=== PATIENT | male | born 1980 | race Caucasian/White ===

== ENCOUNTER 2018-07-20 13:35 | Inpatient (IN) | payer MEDICAID ==
[~2018-07-20] VITALS: Ht 182.9 cm; Wt 85.7 kg
[~2018-07-20 13:35] MED LIST: AMPH15CA PO; AMPH30TA3 PO; GABA-529 PO; LORA0.5T2 PO
[2018-07-20] MEDS ORDERED: LORazepam 2 MG/ML VIAL IM ONE (14:00)
[2018-07-20] MEDS ORDERED: DiphenhydrAMINE HCL 50 MG/ML VIAL IM ONE (14:00)
[2018-07-20] MEDS ORDERED: HALOPERIDOL LACTATE 5 MG/ML VIAL IM ONE (14:00)
[2018-07-20] MEDS ORDERED: ACETAMINOPHEN 325 MG TABLET PO PRN ×2 (14:30→18:30)
[2018-07-20] MEDS ORDERED: HALOPERIDOL 5 MG TABLET PO PRN (14:30)
[2018-07-20] MEDS ORDERED: ZOLPIDEM TARTRATE 10 MG TABLET PO PRN (14:30)
[2018-07-20] MEDS ORDERED: IBUPROFEN 400 MG TABLET PO PRN ×2 (14:30→18:30)
[2018-07-20 14:56] LABS: BASOPHILS % (AUTO) 0.5 % (0.0-2.0); EOSINOPHILS % (AUTO) 3.9 % (1.0-6.0); HEMATOCRIT 39.3 % (41-53); HEMOGLOBIN 13.5 g/dL (13.5-17.5); LYMPHOCYTES # (AUTO) 3.1 K/uL (1.0-4.8); LYMPHOCYTES % (AUTO) 37.7 % (22.0-44.0); MEAN CORPUSCULAR HEMOGLOBIN 30.5 pg (26.0-34.0); MEAN CORPUSCULAR HGB CONC 34.2 G/dL (31.0-37.0); MEAN CORPUSCULAR VOLUME 89 fL (80-100); MONOCYTES # (AUTO) 0.7 K/uL (0.1-1.0); NEUTROPHILS # (AUTO) 4.1 K/uL (1.8-7.7); NEUTROPHILS % (AUTO) 49.9 % (40.0-70.0); PLATELET COUNT (AUTO) 390 K/uL (150-450); RED CELL DISTRIBUTION WIDTH 13.6 % (11.5-14.5)
[2018-07-20 15:17] LABS: ALANINE AMINOTRANSFERASE 23 U/L (12-78); ALKALINE PHOSPHATASE 70 U/L (46-116); ANION GAP 10 mmol/L (8-16); ASPARTATE AMINOTRANSFERASE 21 U/L (15-37); BILIRUBIN,TOTAL 0.5 mg/dL (0.1-1.0); CALCIUM, TOTAL 9.3 mg/dL (8.8-10.5); CARBON DIOXIDE 26 mmol/L (22-29); CHLORIDE 101 mmol/L (98-107); CREATININE 1.02 mg/dL (0.60-1.30); GLOMERULAR FILTR. RATE CALC > 60 mL/min (>60); GLUCOSE,RANDOM 83 mg/dL (70-110); POTASSIUM 3.4 mmol/L (3.5-5.1); SODIUM SERUM 137 mmol/L (136-145); TOTAL PROTEIN, SERUM 7.6 g/dL (6.4-8.2)
[2018-07-20 15:24] LABS: UREA NITROGEN, BLOOD 16 mg/dL (7-18)
[2018-07-20 18:09] VITALS: BP 120/64
[2018-07-20] MEDS ORDERED: DOCUSATE SODIUM 100 MG CAPSULE PO PRN (18:30)
[2018-07-20] MEDS ORDERED: LOPERAMIDE HCL 2 MG CAPSULE PO PRN (18:30)
[2018-07-20] MEDS ORDERED: CloNIDine HCL 0.1 MG TABLET PO PRN (18:30)
[2018-07-20] MEDS ORDERED: MAG HYDROX/AL HYDROX/SIMETH ES 30 ML SUSPENSION UDCUP PO PRN (18:30)
[2018-07-20] MEDS ORDERED: ONDANSETRON HCL 4 MG TABLET PO PRN (18:30)
[2018-07-20] MEDS ORDERED: GuaiFENesin/D-METHORPHAN [SUGAR-FREE] 200-20MG/10 ML SYRUP UDCUP PO PRN (18:30)
[2018-07-20] MEDS ORDERED: PETROLATUM,WHITE 71 GM JELLY TP PRN (18:30)
[2018-07-20] MEDS ORDERED: NICOTINE 14 MG/24 HOUR PATCH TD PRN (18:30)
[2018-07-20] MEDS ORDERED: ALBUTEROL SULFATE HFA 90 MCG/PUFF 8 GM INHALER IH PRN (18:30)
[2018-07-20] MEDS ORDERED: MAGNESIUM HYDROXIDE SUSPENSION 30 ML UDCUP PO PRN (18:30)
[2018-07-21 07:22] VITALS: BP 119/65
[2018-07-21 08:26] VITALS: BP 107/67
[2018-07-21 08:28] LABS: BASOPHILS % (AUTO) 0.3 % (0.0-2.0); EOSINOPHILS % (AUTO) 3.5 % (1.0-6.0); HEMATOCRIT 41.8 % (41-53); HEMOGLOBIN 14.3 g/dL (13.5-17.5); LYMPHOCYTES % (AUTO) 25.9 % (22.0-44.0); MEAN CORPUSCULAR HEMOGLOBIN 30.9 pg (26.0-34.0); MEAN CORPUSCULAR HGB CONC 34.3 G/dL (31.0-37.0); MEAN CORPUSCULAR VOLUME 90 fL (80-100); MONOCYTES # (AUTO) 0.7 K/uL (0.1-1.0); MONOCYTES % (AUTO) 8.6 % (2.0-9.0); NEUTROPHILS # (AUTO) 4.9 K/uL (1.8-7.7); NEUTROPHILS % (AUTO) 61.7 % (40.0-70.0); PLATELET COUNT (AUTO) 388 K/uL (150-450); RED BLOOD CELL COUNT(AUTO) 4.64 MIL/uL (4.50-5.90); RED CELL DISTRIBUTION WIDTH 13.8 % (11.5-14.5)
[2018-07-21 09:00] LABS: HEMOGLOBIN A1C 5.6 % (4.5-6.2)
[2018-07-21 09:37] LABS: ALANINE AMINOTRANSFERASE 25 U/L (12-78); ALBUMIN 3.7 g/dL (3.4-5.0); ALKALINE PHOSPHATASE 65 U/L (46-116); ANION GAP 9 mmol/L (8-16); ASPARTATE AMINOTRANSFERASE 27 U/L (15-37); BILIRUBIN,TOTAL 0.7 mg/dL (0.1-1.0); CALCIUM, TOTAL 9.3 mg/dL (8.8-10.5); CARBON DIOXIDE 27 mmol/L (22-29); CHLORIDE 102 mmol/L (98-107); CHOL/HDL RATIO 2.3 (4.2-7.3); CHOLESTEROL 136 mg/dL (131-200); CREATININE 1.08 mg/dL (0.60-1.30); GLOMERULAR FILTR. RATE CALC > 60 mL/min (>60); GLUCOSE,RANDOM 70 mg/dL (70-110); HDL CHOLESTEROL 58 mg/dL (40-60); LDL CHOL (CALC.) 73 mg/dL (0-130); POTASSIUM 3.9 mmol/L (3.5-5.1); SODIUM SERUM 138 mmol/L (136-145); THYROID STIMULATING HORMONE 2.46 uIU/mL (0.36-3.74); TOTAL PROTEIN, SERUM 7.3 g/dL (6.4-8.2); TRIGLYCERIDES 27 mg/dL (15-150); UREA NITROGEN, BLOOD 12 mg/dL (7-18)
[2018-07-21] MEDS: OLANZapine 5 MG RAPDIS TABLET PO SCH ×2 (10:37→16:51)
[2018-07-21 16:12] VITALS: BP 135/89
[2018-07-22 03:38] VITALS: BP 125/80
[2018-07-22] MEDS: OLANZapine 5 MG RAPDIS TABLET PO SCH ×2 (08:33→16:29)
[2018-07-22 08:39] VITALS: BP 120/68
[2018-07-22 16:00] VITALS: BP 108/65
[2018-07-22] MEDS: LORazepam 2 MG TABLET PO PRN (16:29)
[2018-07-23 00:26] VITALS: BP 113/67
[2018-07-23 08:21] VITALS: BP 135/78
[2018-07-23] MEDS: OLANZapine 5 MG RAPDIS TABLET PO SCH ×2 (09:00→16:23)
[2018-07-23 16:01] VITALS: BP 104/55
[2018-07-23] MEDS: LORazepam 2 MG TABLET PO PRN (16:24)
[2018-07-24 05:39] VITALS: BP 118/72
[2018-07-24 08:31] VITALS: BP 108/69
[2018-07-24] MEDS: OLANZapine 5 MG RAPDIS TABLET PO SCH (09:11)
[2018-07-24] MEDS ORDERED: OLAN5TAB2 PO (13:23)
== END 2018-07-24 13:52 | disposition home or self-care (01) | DRG 750 ==
LOC: EMS 13:36 → B3A 15:26
PROVIDERS: ADMIT Psychiatry & Neurology Child & Adolescent Psychiatry; ATTEND Psychiatry & Neurology Child & Adolescent Psychiatry
DX: F20.0 Paranoid schizophrenia (principal); E87.6 Hypokalemia; F17.210 Nicotine dependence, cigarettes, uncomplicated; F90.9 Attention-deficit hyperactivity disorder, unspecified type; F43.10 Post-traumatic stress disorder, unspecified; F41.9 Anxiety disorder, unspecified; Z71.6 Tobacco abuse counseling
CPT/HCPCS: 83036; 84443; G0480; J1200; J1630; J2060

== ENCOUNTER 2019-05-11 11:44 | Inpatient (IN) | payer MEDICAID, OTHER ==
[~2019-05-11] VITALS: Ht 188 cm; Wt 81.8 kg
[~2019-05-11 11:44] MED LIST changes: -AMPH15CA PO; -AMPH30TA3 PO; -GABA-529 PO; -LORA0.5T2 PO; +OLAN5TAB2 PO
[2019-05-11 14:33] LABS: BASOPHILS % (AUTO) 0.3 % (0.0-2.0); EOSINOPHILS % (AUTO) 2.3 % (1.0-6.0); HEMATOCRIT 40.2 % (41-53); HEMOGLOBIN 13.9 g/dL (13.5-17.5); LYMPHOCYTES # (AUTO) 2.2 K/uL (1.0-4.8); LYMPHOCYTES % (AUTO) 22.4 % (22.0-44.0); MEAN CORPUSCULAR HGB CONC 34.6 G/dL (31.0-37.0); MEAN CORPUSCULAR VOLUME 90 fL (80-100); MONOCYTES # (AUTO) 0.7 K/uL (0.1-1.0); MONOCYTES % (AUTO) 6.6 % (2.0-9.0); NEUTROPHILS # (AUTO) 6.8 K/uL (1.8-7.7); NEUTROPHILS % (AUTO) 68.4 % (40.0-70.0); PLATELET COUNT (AUTO) 466 K/uL (150-450); RED BLOOD CELL COUNT(AUTO) 4.48 MIL/uL (4.50-5.90)
[2019-05-11 14:43] LABS: ANION GAP 5 mmol/L (8-16); CALCIUM, TOTAL 9.3 mg/dL (8.8-10.5); CARBON DIOXIDE 31 mmol/L (22-29); CHLORIDE 101 mmol/L (98-107); CREATININE 0.94 mg/dL (0.60-1.30); GLOMERULAR FILTR. RATE CALC > 60 mL/min (>60); GLUCOSE,RANDOM 84 mg/dL (70-110); POTASSIUM 4.2 mmol/L (3.5-5.1); SODIUM SERUM 137 mmol/L (136-145); UREA NITROGEN, BLOOD 8 mg/dL (7-18)
[2019-05-11 15:01] LABS: ALANINE AMINOTRANSFERASE 19 U/L (12-78); ALBUMIN 3.8 g/dL (3.4-5.0); ALKALINE PHOSPHATASE 90 U/L (46-116); ASPARTATE AMINOTRANSFERASE 18 U/L (15-37); BILIRUBIN,TOTAL 0.6 mg/dL (0.1-1.0); TOTAL PROTEIN, SERUM 7.5 g/dL (6.4-8.2)
[2019-05-11] MEDS ORDERED: SULFAMETHOX/TRIMETH DS 800-160 MG/TABLET PO ONE (15:30)
[2019-05-11] MEDS ORDERED: ZOLPIDEM TARTRATE 10 MG TABLET PO PRN (19:30)
[2019-05-11] MEDS ORDERED: HALOPERIDOL 5 MG TABLET PO PRN (19:30)
[2019-05-11 21:22] LABS: AMPHET/METH SCREEN,URINE POSITIVE (NEGATIVE); BARBITURATE SCREEN, URINE NEGATIVE (NEGATIVE); BENZODIAZEPINES SCREEN,URINE NEGATIVE (NEGATIVE); CANNABINOID SCREEN,URINE NEGATIVE (NEGATIVE); COCAINE SCREEN,URINE NEGATIVE (NEGATIVE); METHADONE SCREEN, URINE NEGATIVE (NEGATIVE); OPIATE SCREEN,URINE NEGATIVE (NEGATIVE); PHENCYCLIDINE SCREEN,URINE NEGATIVE (NEGATIVE)
[2019-05-11 22:51] VITALS: BP 122/68
[2019-05-12 08:37] VITALS: BP 139/89
[2019-05-12] MEDS ORDERED: SULFAMETHOX/TRIMETH DS 800-160 MG/TABLET PO SCH (09:00)
[2019-05-12] MEDS ORDERED: MAG HYDROX/AL HYDROX/SIMETH ES 30 ML SUSPENSION UDCUP PO PRN (13:15)
[2019-05-12] MEDS ORDERED: DOCUSATE SODIUM 100 MG CAPSULE PO PRN (13:15)
[2019-05-12] MEDS ORDERED: PETROLATUM,WHITE 28 GM JELLY TP PRN (13:15)
[2019-05-12] MEDS ORDERED: CloNIDine HCL 0.1 MG TABLET PO PRN (13:15)
[2019-05-12] MEDS ORDERED: ONDANSETRON HCL 4 MG TABLET PO PRN (13:15)
[2019-05-12] MEDS ORDERED: GuaiFENesin/D-METHORPHAN [SUGAR-FREE] 200-20MG/10 ML SYRUP UDCUP PO PRN (13:15)
[2019-05-12] MEDS ORDERED: ALBUTEROL SULFATE HFA 90 MCG/PUFF 8 GM INHALER IH PRN (13:15)
[2019-05-12] MEDS ORDERED: LOPERAMIDE HCL 2 MG CAPSULE PO PRN (13:15)
[2019-05-12] MEDS ORDERED: MAGNESIUM HYDROXIDE SUSPENSION 30 ML UDCUP PO PRN (13:15)
[2019-05-12] MEDS ORDERED: NICOTINE 14 MG/24 HOUR PATCH TD PRN (13:15)
[2019-05-12] MEDS ORDERED: IBUPROFEN 400 MG TABLET PO PRN (13:15)
[2019-05-12] MEDS ORDERED: ACETAMINOPHEN 325 MG TABLET PO PRN (13:15)
[2019-05-12] MEDS ORDERED: MULTIVITAMINS WITH MINERALS, THERAPEUTIC TABLET PO ONE (15:15)
[2019-05-12 19:00] VITALS: BP 128/79
[2019-05-13 09:53] VITALS: BP 126/100
[2019-05-13] MEDS: OLANZapine 5 MG TABLET PO SCH (17:00)
[2019-05-13 23:00] VITALS: BP 149/69
[2019-05-14 08:46] VITALS: BP 155/92
[2019-05-14] MEDS: OLANZapine 5 MG TABLET PO SCH ×2 (09:00→17:00)
[2019-05-14 19:09] VITALS: BP 113/60
[2019-05-15 08:45] VITALS: BP 129/79
[2019-05-15] MEDS: OLANZapine 5 MG TABLET PO SCH (10:00)
[2019-05-15] MEDS: ARIPiprazole 10 MG TABLET PO SCH ×3 (10:45→11:16)
[2019-05-15 18:14] VITALS: BP 109/78
[2019-05-16] MEDS: ARIPiprazole 10 MG TABLET PO SCH (08:03)
[2019-05-16 09:25] VITALS: BP 124/64
[2019-05-16 17:36] VITALS: BP 99/57
[2019-05-16] MEDS: LORazepam 2 MG TABLET PO PRN (18:47)
[2019-05-17] MEDS: ARIPiprazole 10 MG TABLET PO SCH (08:30)
[2019-05-17 09:47] VITALS: BP 119/79
[2019-05-17 16:59] VITALS: BP 127/84
[2019-05-17] MEDS: LORazepam 2 MG TABLET PO PRN (17:05)
[2019-05-18] MEDS: ARIPiprazole 10 MG TABLET PO SCH (09:00)
[2019-05-18 10:38] VITALS: BP 124/77
[2019-05-18] MEDS ORDERED: ARIP10TA8 PO (12:57)
== END 2019-05-18 15:15 | disposition home or self-care (01) | DRG 885 ==
LOC: EMS 11:45 → 3EI 21:09
PROVIDERS: ADMIT Psychiatry & Neurology Psychiatry; ATTEND Psychiatry & Neurology Psychiatry
DX: F25.1 Schizoaffective disorder, depressive type (principal); L02.412 Cutaneous abscess of left axilla; R45.851 Suicidal ideations; F17.200 Nicotine dependence, unspecified, uncomplicated; F15.10 Other stimulant abuse, uncomplicated; F31.9 Bipolar disorder, unspecified; R45.87 Impulsiveness; F43.10 Post-traumatic stress disorder, unspecified; Z59.0 Homelessness; Z91.19 Patient's noncompliance with other medical treatment and regimen
CPT/HCPCS: 70450; 87081; G0480